=== PATIENT | female | born 1985 | race Caucasian/White ===

== ENCOUNTER 2019-08-16 05:40 | Inpatient (IN) | payer OTHER ==
--- NOTE | 2019-08-16 07:07 | HP ---
Past Medical History - Primary Care Physician PCP:: Cristóbal Reich - Admission Chief Complaint: latent labor and undiagnosed GDM History Source: Patient Limitations to Obtaining History: No Limitations - Past Medical History LADLE LINER: No: Alzheimer's, CVA, Dementia, Migraine, Multiple Sclerosis, Peripheral Neuropathy, Parkinson's, Seizure, Syncope, TIA, Vertigo, Other Cardiovascular: No: AFIB, Aneurysm, Aortic Insufficiency, Aortic Stenosis, CAD, CHF, Deep Vein Thrombosis, HTN, Hyperlipdemia, OH, Mitral Insufficiency, Mitral Stenosis, Murmur, Pulmonary Hypertension, Other Pulmonary: No: Asthma, Bronchitis, Cancer, COPD, O2 Dependent, Pneumonia, Previously Intubated, Pulmonary Embolus, Pulmonary Fibrosis, Sleep Apnea, Other Gastrointestinal: No: Ascites, Cancer, Constipation, Crohn's Disease, Diverticulitis, Diverticulosis, Esophageal Varices, Gastritis, GERD, GI Bleed, Hemorrhoids, Hiatal Hernia, Inflamatory Bowel Disease, Irritable Bowel Disease, Pancreatitis, Peptic Ulcer Disease, Ulcerative Colitis, Other Hepatobiliary: No: Cirrhosis, Cholelithiasis, Cholecystitis, Choledocholithiasis , Hepatitis A, Hepatitis B, Hepatitis C, Other Renal/: No: Renal Failure, Renal Inusuff, BPH, Cancer, Hematuria, Hemodialysis , Neurogenic Bladder, Renal Calculi, UTI, Other ...: 4 ...Para: 3 ...Term: 3 ...: 0 ...Spon : 0 ...Induced : 0 ...LMP: 11/07/18 ... Weeks Gestation by Dates: 40.2 ...EDC by Dates: 08/14/19 ...EDC by Sono: 08/14/19 Heme/Onc: No: Anemia, B12 Deficiency, Bleeding Disorder, Cancer, Current Chemotherapy, Current Radiation Therapy, Hemochromatosis, Hypercoaguable State, Myeloproliferative Synd, Sickle Cell Disease, Sickle Cell Trait, Thrombocytopenia, Other Infectious Disease: No: AIDS, C-Diff, Herpes Zoster, HIV, MRSA, STD's, Tuberculosis, VREF, Other Psych: No: Addictions, Anxiety, Bipolar, Depression, Panic, Psychosis, Schizophrenia, Other Musculoskeletal: No: Bursitis, Chronic low back pain, Hemiparesis, Hemiplegia, Osteoarthritis, Paraplegia, Other Rheumatology: No: Fibromyalgia, Gout, Lupus, Rheumatoid Arthritis, Sarcoidosis, Vasculitis, Other ENT: No: Allergic Rhinitis, Sinusitis, Other Endocrine: No: [place]'s Disease, [place]'s Disease, Diabetes Insipidus, Diabetes Mellitus, Hyperparathyroidism, Hyperthyroidism, Hypothyroidism, Osteopenia, SIADH, Other Dermatology: No: Basal Cell, Cellulitis, Eczema, Melanoma, Psoriasis, Squamous Cell, Other - Past Surgical History Past Surgical History: No: None, AAA Repair, AICD, Amputation, Appendectomy, Arthrosocopy, AV Fistula/Graft, Bariatric Surgery, Breast Biopsy, Bypass, CABG, Carotid Endarterectomy, Cataract Removal, Cholecystectomy, Colectomy, Colonoscopy, Colostomy, Craniotomy, , Cystectomy, Hernia Repair, Hysterectomy, Ileal Conduit, Ileosotomy, Joint Replacement, Kidney Transplant, Laminectomy, Liver Transplant, Mastectomy, Nephrectomy, Oopherectomy, Orchiectomy, Permanent Pacemaker, Prostatectomy, Splenectomy, Stent, Thoracotomy , TURP, Tonsillectomy, Tubal Ligation, Upper Endoscopy, Valve Replacement, Vasectomy, Vein Stripping/Ligation Hx Myomectomy: No Hx Transabdominal Cerclage: No - Advance Directives Advance Directives: No: Living Will, Health Care Proxy, DNR, Organ Donor, Tissue Donor, MOLST - Smoking History Smoking history: Never smoked Aproximately how many cigarettes per day: 0 - Alcohol/Substance Use Hx Alcohol Use: No - Social History History of Recent Travel: No Home Medications - Allergies Allergies/Adverse Reactions: Allergies Allergy/AdvReac Type Severity Reaction Status Date / Time No Known Allergies Allergy Verified 08/16/19 06:09 - Home Medications Home Medications: Ambulatory Orders Vitamins (Sjr) - 1 tab PO DAILY 08/16/19 Family Medical History Family History: Unremarkable Review of Systems Findings/Remarks: labor pain - Review of Systems Constitutional: reports: No Symptoms Eyes: reports: No Symptoms HENT: reports: No Symptoms Neck: reports: No Symptoms Cardiovascular: reports: No Symptoms Respiratory: reports: No Symptoms Gastrointestinal: reports: No Symptoms Genitourinary: reports: No Symptoms Breasts: reports: No Symptoms Reported Musculoskeletal: reports: No Symptoms Integumentary: reports: No Symptoms Neurological: reports: No Symptoms Endocrine: reports: No Symptoms Hematology/Lymphatic: reports: No Symptoms Psychiatric: reports: No Symptoms Physical Exam - Maternity Vital Signs: Vital Signs Temperature Pulse Rate 80 08/16/19 06:15 Respiratory Rate 18 02/25/20 06:15 Blood Pressure 121/72 08/16/19 06:15 O2 Sat by Pulse Oximetry (%) Constitutional: Yes: Well Nourished HENT: Yes: Atraumatic Neck: Yes: Supple Cardiovascular: Yes: Regular Rate and Rhythm - Abdominal Exam/OB Number of Fetuses: Single Presentation: Vertex Contractions: Yes Regularity: Regular Intensity: Mod/Strong Monitor Mode: External Heart Rate (range): 150 Category: I Accelerations: Uniform Decelerations: None - Vaginal Exam/OB Vaginal Bleediing: Yes Speculum Exam: No Dilatation (cm): 3 Effacement (%): 60 Amniotic Membrane Status: Intact Presentation: Vertex/Position Station: -3 - Physical Exam Musculoskeletal: Yes: WNL Extremities: Yes: WNL Edema: Yes Edema: LLE: Trace, RLE: Trace Integumentary: Yes: WNL Deep Tendon Reflex Grade: Normal +2 ...Motor Strength: WNL Psychiatric: Yes: Alert, Oriented Imaging - Results Ultrasound: Report Reviewed (07/29/19: EFW at 22%) Assessment/Plan 33 y/o @ 40.2wks, undiagnosed GDM presenting in latent early labor, FHT is reassuring, FS 93. Patient was counseled regarding GDM and its risks and complications. All questions answered. Informed consent obtained -Admit -Expectant management -re-evaluate accordingly -IV pain control -Continuous FHT monitoring -FS q4hr while in latent early labor
[2019-08-16 07:13] LABS: EOS % 1.8 % (0-4.5); HEMATOCRIT 30.6 % (32.4-45.2); HEMOGLOBIN 10.1 GM/dL (10.7-15.3); LYMPH % 19.3 % (8-40); MCHC 33.2 g/dl (32.0-36.0); MEAN CELL VOLUME 81.3 fl (80-96); MEAN PLT VOLUME 10.9 fl (7.5-11.1); MONO % 5.5 % (3.8-10.2); NEUT % 72.4 % (42.8-82.8); PLATELET COUNT 198 K/MM3 (134-434); RBC 3.76 M/mm3 (3.60-5.2); RDW 14.7 % (11.6-15.6)
[2019-08-16] MEDS ORDERED: ELECTROLYTE-148 SOLN 1,000 ML IV SCH ×2 (07:15→09:15)
[2019-08-16 07:26] LABS: INR 0.91 (0.83-1.09); PROTHROMBIN TIME (PATIENT) 10.7 SEC (9.7-13.0)
[2019-08-16 07:28] LABS: ACTIVATED PTT 32.9 SECONDS (25.2-36.5)
[2019-08-16] MEDS ORDERED: BUTORPHANOL TARTRATE 1 MG/ML VIAL ONE (07:37)
[2019-08-16 07:49] LABS: ALBUMIN 2.6 g/dl (3.4-5.0); BILIRUBIN,TOTAL 0.3 mg/dL (0.2-1); BLOOD UREA NITROGEN 7.6 mg/dL (7-18); CALCIUM 9.2 mg/dL (8.5-10.1); CREATININE 0.4 mg/dL (0.55-1.3); POTASSIUM 3.8 mmol/L (3.5-5.1); TOT PROT 6.6 g/dl (6.4-8.2)
[2019-08-16] MEDS ORDERED: BUTORPHANOL TARTRATE 1 MG/ML VIAL IVPB ONE (07:51)
[2019-08-16 08:12] VITALS: BMI 33.5
[2019-08-16] MEDS ORDERED: FENTANYL/BUPIVACAINE/NS/PF - PCEA - 50 ML DISP.SYRIN EP ONE (08:51)
[2019-08-16] MEDS ORDERED: LIDO 2%/EPI 1:200000 PRESRVFRE (20 ML SDVIAL) ONE (08:55)
[2019-08-16] MEDS ORDERED: BUPIVACAINE HCL/PF 0.25% (2.5MG/ML) 10 ML VIAL ONE (08:55)
[2019-08-16] MEDS ORDERED: PHENYLEPHRINE HCL 10 MG/1 ML SINGLE DOSE VIAL ONE (08:57)
[2019-08-16] MEDS ORDERED: ePHEDrine SULFATE 50 MG/1 ML AMPULE ONE (08:57)
[2019-08-16] MEDS ORDERED: SODIUM CHLORIDE 0.9% P/F 10 ML VIAL IJ ONE (08:57)
--- NOTE | 2019-08-16 09:12 | PN ---
Progress Note (short form) - Note Progress Note: cx 4 to 5 cm 75, vx -3 ,mi, fhr cat 1, regular contraction, requestion epidural anesthesia
[2019-08-16] MEDS ORDERED: NALOXONE HCL 0.4 MG/ML VIAL IVPUSH PRN (09:43)
[2019-08-16] MEDS ORDERED: FENTANYL/BUPIVACAINE/NS/PF - PCEA - 50 ML DISP.SYRIN EP SCH (09:45)
[2019-08-16] MEDS ORDERED: OXYTOCIN 30 UNITS in 0.9% NS 30 UNIT/500 ML INFUS.BAG IVPB ONE (11:47)
[2019-08-16] MEDS ORDERED: LIDOCAINE HCL 1% PRESERVATIVE FREE - 30ML VIAL ONE (11:47)
[2019-08-16] MEDS ORDERED: OXYTOCIN 20 UNITS in 0.9% NS 20 UNIT/1,000 ML INFUS.BAG IV ONE (11:47)
--- NOTE | 2019-08-16 11:51 | PN ---
Progress Note (short form) - Note Progress Note: cx 7 cm, 80 vx -1 arom ,light mec. FHR cat 1, contraction q 3 min, advised low dose pitocin, risks discussed
[2019-08-16] MEDS ORDERED: OXYTOCIN 30 UNITS in 0.9% NS 30 UNIT/500 ML INFUS.BAG IVPB SCH (12:00)
[2019-08-16] MEDS ORDERED: METHYLERGONOVINE MALEATE 0.2 MG/1 ML AMP IM PRN (13:25)
[2019-08-16] MEDS ORDERED: BENZOCAINE 28 GM HEMORRHOIDAL OINTMENT TP PRN (13:25)
[2019-08-16] MEDS ORDERED: WITCH HAZEL 50% (TUCKS) 40 PAD/JAR PAD TP PRN (13:25)
[2019-08-16] MEDS ORDERED: BISACODYL 10 MG SUPP.RECT RC PRN (13:25)
[2019-08-16] MEDS ORDERED: BENZOCAINE 20% 57 GM BOTTLE TP PRN (13:25)
[2019-08-16] MEDS ORDERED: D5W-LR W/ 20 UNITS OXYTOCIN 20 UNIT/1,000 ML INFUS.BAG IV SCH (13:30)
[2019-08-16] MEDS ORDERED: OXYTOCIN 20 UNITS in 0.9% NS 20 UNIT/1,000 ML INFUS.BAG IV SCH (13:30)
--- NOTE | 2019-08-16 13:46 | PN ---
Delivery - Delivery Vaginal Delivery: Spontaneous Type of Anesthesia: Epidural (head delivered , MERCEDES, nasopharynx suctioned , no cord , ant. and post. shoulder with no difficulty, live baby girl 9/9 . palceta conplete . spontaneous , baby bonded with mother , no complication) Episiotomy/Laceration: None Delivery, Single - Feeding Plan Initial Plan: Exclusive throughout hospitalization
[2019-08-16] MEDS: IBUPROFEN 600 MG TABLET (FP) PO PRN ×2 (16:00→23:07)
[2019-08-16] MEDS: FERROUS SO4 325 MG TABLET (FP) PO SCH (23:07)
[2019-08-16] MEDS: ACETAMINOPHEN 325 MG TABLET (FP) PO PRN (23:08)
[2019-08-17 08:08] LABS: BASO % 0.7 % (0-2.0); EOS % 3.3 % (0-4.5); HEMOGLOBIN 8.7 GM/dL (10.7-15.3); LYMPH % 27.5 % (8-40); MCH 27.1 pg (25.7-33.7); MCHC 33.3 g/dl (32.0-36.0); MEAN CELL VOLUME 81.5 fl (80-96); MEAN PLT VOLUME 10.7 fl (7.5-11.1); MONO % 5.8 % (3.8-10.2); NEUT % 62.7 % (42.8-82.8); PLATELET COUNT 168 K/MM3 (134-434); RBC 3.19 M/mm3 (3.60-5.2); RDW 14.9 % (11.6-15.6); WHITE BLOOD COUNT 6.5 K/mm3 (4.0-10.0)
[2019-08-17] MEDS: IBUPROFEN 600 MG TABLET (FP) PO PRN ×2 (08:11→23:00)
[2019-08-17] MEDS: ACETAMINOPHEN 325 MG TABLET (FP) PO PRN ×2 (08:11→22:59)
[2019-08-17] MEDS: PRENATAL VITAMINS W/ FOLIC ACID TABLET (FP) PO SCH (09:28)
[2019-08-17] MEDS: FERROUS SO4 325 MG TABLET (FP) PO SCH ×2 (09:28→22:59)
[2019-08-17] MEDS ORDERED: DIPHTH,PERTUSS(ACELL),TET 0.5 ML DISP.SYRIN IM ONE (10:00)
--- NOTE | 2019-08-17 10:37 | PN ---
Post Progress Note - Subjective Subjective: no complains no c/o dizziness Post Day: 1 Type of Delivery: Vital Signs: Vital Signs Temperature 98.1 F 08/17/19 08:00 Pulse Rate 60 08/17/19 08:00 Respiratory Rate 20 08/17/19 08:00 Blood Pressure 125/67 08/17/19 08:00 O2 Sat by Pulse Oximetry (%) 100 08/16/19 16:15 Breast Exam: Yes: Soft, Other (BF ). No: Engorged Uterus: Yes: Fundus Firm, Fundus below umbilicus, Non-tender Lochia: Yes: Rubra Lochia, amount: Moderate Perineum: Yes: Intact Activity: Ambulating - Labs Labs: CBC WBC 6.5 K/mm3 (4.0-10.0) 08/17/19 07:36 RBC 3.19 M/mm3 (3.60-5.2) L 08/17/19 07:36 Hgb 8.7 GM/dL (10.7-15.3) L 08/17/19 07:36 Hct 26.0 % (32.4-45.2) L D 08/17/19 07:36 MCV 81.5 fl (80-96) 08/17/19 07:36 MCH 27.1 pg (25.7-33.7) 08/17/19 07:36 MCHC 33.3 g/dl (32.0-36.0) 08/17/19 07:36 RDW 14.9 % (11.6-15.6) 08/17/19 07:36 Plt Count 168 K/MM3 (134-434) 08/17/19 07:36 MPV 10.7 fl (7.5-11.1) 08/17/19 07:36 Absolute Neuts (auto) 4.1 K/mm3 (1.5-8.0) 08/17/19 07:36 Neutrophils % 62.7 % (42.8-82.8) 08/17/19 07:36 Lymphocytes % 27.5 % (8-40) D 08/17/19 07:36 Monocytes % 5.8 % (3.8-10.2) 08/17/19 07:36 Eosinophils % 3.3 % (0-4.5) D 08/17/19 07:36 Basophils % 0.7 % (0-2.0) 08/17/19 07:36 Nucleated RBC % 0 % (0-0) 08/17/19 07:36 Problem List - Problems (1) Vaginal delivery Code(s): O80 - ENCOUNTER FOR FULL-TERM UNCOMPLICATED DELIVERY (2) examination following vaginal delivery Code(s): Z39.2 - ENCOUNTER FOR ROUTINE FOLLOW-UP Assessment/Plan stable . anemia counselled discharge tomorrow.
[2019-08-17] MEDS ORDERED: SENNOSIDES/DOCUSATE COMBO (SENNA PLUS) TABLET (UD) PO PRN (22:00)
--- NOTE | 2019-08-18 07:04 | DS ---
Physical Examination Vital Signs: Vital Signs Temperature 98.8 F 08/17/19 21:11 Pulse Rate 64 08/17/19 21:11 Respiratory Rate 20 08/17/19 21:11 Blood Pressure 130/71 08/17/19 21:11 O2 Sat by Pulse Oximetry (%) 100 08/16/19 16:15 Constitutional: Yes: Well Nourished, No Distress, Calm Eyes: Yes: WNL, Conjunctiva Clear, EOM Intact HENT: Yes: WNL, Atraumatic, Normocephalic Neck: Yes: WNL, Supple, Trachea Midline Cardiovascular: Yes: WNL, Regular Rate and Rhythm Respiratory: Yes: WNL, Regular, CTA Bilaterally Gastrointestinal: Yes: WNL, Normal Bowel Sounds Musculoskeletal: Yes: WNL Extremities: Yes: WNL Edema: No Integumentary: Yes: WNL Neurological: Yes: WNL, Alert, Oriented ...Motor Strength: WNL Psychiatric: Yes: WNL Labs: CBC, BMP 08/17/19 07:36 08/16/19 06:45 Discharge Summary Problems reviewed: Yes Reason For Visit: ADMIT LABOR Current Active Problems examination following vaginal delivery (Acute) Procedures: Principal: Hospital Course: Patient presented in labor She had an uncomplicated She met all milestones She was discharged home on PPD#2 M. MD Zackary Condition: Stable - Instructions Diet, Activity, Other Instructions: Regular Diet Follow up in 3 weeks for your visit Referrals: Tiffanie Raymundo MD [Staff Physician] - Disposition: HOME - Home Medications Comprehensive Discharge Medication List: Ambulatory Orders Vitamins (Sjr) - 1 tab PO DAILY 08/16/19 Ibuprofen 600 mg PO Q6H PRN #30 tablet 08/17/19
[2019-08-18] MEDS: PRENATAL VITAMINS W/ FOLIC ACID TABLET (FP) PO SCH (09:17)
[2019-08-18] MEDS: FERROUS SO4 325 MG TABLET (FP) PO SCH (09:17)
[2019-08-18 09:43] VITALS: BP 132/61; PULSE 66; TEMP 98.5
== END 2019-08-18 12:00 | disposition home or self-care (01) | DRG 560 ==
LOC: JDEL 05:40 → JLDR 06:25 → J3W 15:52
PROVIDERS: ADMIT Student in an Organized Health Care Education/Training Program; ATTEND Student in an Organized Health Care Education/Training Program
PROC: 10E0XZZ Delivery of Products of Conception, External Approach (ICD-10-PCS; principal; 2019-08-16)
DX: O24.429 Gestational diabetes mellitus in childbirth, unspecified control (principal); O99.013 Anemia complicating pregnancy, third trimester; Z3A.40 40 weeks gestation of pregnancy; Z37.0 Single live birth
CPT/HCPCS: 36415; 36600; 59025; 59409; 80053; 82803; 82962; 85025; 85610; 85730; 86593; 86850; 86900; 86901; 90715